=== PATIENT | female | born 1970 | race Caucasian/White ===

== ENCOUNTER 2021-05-23 09:46 | Outpatient (CLI) | payer OTHER | END 2021-05-23 09:47 | disposition home or self-care (01) | LOC: DTY/OP 09:46 → EDSEX 10:00 | PROVIDERS: ATTEND Student in an Organized Health Care Education/Training Program | DX: E11.65 Type 2 diabetes mellitus with hyperglycemia (principal) | CPT/HCPCS: 97802 ==

== ENCOUNTER 2022-10-24 21:17 | Emergency (ER) | payer OTHER | END 2022-10-24 22:39 | disposition home or self-care (01) | LOC: ERS 21:17 | DX: E11.9 Type 2 diabetes mellitus without complications (principal) | CPT/HCPCS: 36416; 99281 ==